=== PATIENT | female | born 1960 | race Caucasian/White ===

== ENCOUNTER 2016-05-09 07:05 | Emergency (ER) | payer OTHER ==
[2016-05-09 07:23] VITALS: O2SAT 100
--- NOTE | 2016-05-09 07:42 | ERPHSYRPT ---
- History of Present Illness Time Seen by Provider: 05/09/16 07:29 Source: patient Exam Limitations: no limitations Patient Subjective Stated Complaint: dizziness Triage Nursing Assessment: states she felt dizzy last night before bed. woke up this morning with dizziness and heart 'fluttering'. vomited x2 driving in. on arrival, slightly diaphoretic, heart felt like it was 'fluttering' and 'my whole body feels shaky' moist oral membranes. david pain or injury. Physician History: The patient is a 56-year-old female who complains of some dizziness and lightheadedness that started last night. This morning she had one loose stool. In the bathroom when she closed her eyes she states the room felt like it was spinning. She states her heart felt a little bit "funny". She denies abdominal pain. She denies headache. On the drive to work she pulled over and vomited twice. Her body feels "shaky. She has a past medical history of hypothyroidism, diabetes, and high cholesterol. Visit past surgical history of . She denies tobacco use. She has an occasional alcoholic beverage. Timing/Duration: yesterday Severity: moderate Modifying Factors: Improves With: nothing Associated Symptoms: vomiting Allergies/Adverse Reactions: No Known Drug Allergies Allergy (Verified 05/09/16 07:23) Home Medications: Levothyroxine Sodium 88 Mcg [Synthroid 88 Mcg] 100 mcg PO DAILY 09/25/13 [ History] Metformin HCl 1000 mg [Glucophage 1000 MG] 1,000 mg PO BID 09/25/13 [History] Atorvastatin Calcium [Lipitor 20MG Tablet] 20 mg PO HS 07/27/14 [History] Naltrexone HCl/Bupropion HCl [Contrave ER 8-90 mg Tablet] 2 each PO DAILY [History] Hx Tetanus, Diphtheria Vaccination/Date Given: Yes Hx Influenza Vaccination/Date Given: Yes Hx Pneumococcal Vaccination/Date Given: No Immunizations Up to Date: Yes - Review of Systems Constitutional: No Fever, No Chills Eyes: No Symptoms Ears, Nose, & Throat: No Symptoms Respiratory: No Cough, No Dyspnea Cardiac: Palpitations Abdominal/Gastrointestinal: Vomiting Genitourinary Symptoms: No Dysuria Musculoskeletal: No Back Pain, No Neck Pain Skin: No Rash Neurological: Dizziness Psychological: No Symptoms Endocrine: No Symptoms Hematologic/Lymphatic: No Symptoms Immunological/Allergic: No Symptoms All Other Systems: Reviewed and Negative - Past Medical History Pertinent Past Medical History: Yes Neurological History: No Pertinent History ENT History: No Pertinent History Cardiac History: Angina Respiratory History: No Pertinent History Endocrine Medical History: Diabetes Type II Musculoskeletal History: No Pertinent History GI Medical History: No Pertinent History History: Other Psycho-Social History: No Pertinent History Female Reproductive Disorders: No Pertinent History Other Medical History: hx of 3 rib fractures. pre diabetic. KIDNEY STONES - Past Surgical History Past Surgical History: Yes Neuro Surgical History: No Pertinent History Cardiac: No Pertinent History Respiratory: No Pertinent History Gastrointestinal: No Pertinent History Genitourinary: No Pertinent History Musculoskeletal: Orthopedic Surgery Female Surgical History: Section Other Surgical History: 2 KNEE SURGERYS. D&C - Social History Smoking Status: Never smoker Exposure to second hand smoke: No Drug Use: none Patient Lives Alone: No - Female History Hx Now: No - Nursing Vital Signs Nursing Vital Signs: Initial Vital Signs Temperature 97.6 F Temperature Source Oral Pulse Rate 73 Respiratory Rate 18 Blood Pressure 141/85 Pain Intensity 0 - Physical Exam General Appearance: mild distress Eye Exam: PERRL/EOMI, eyes nml inspection Ears, Nose, Throat Exam: normal ENT inspection, TMs normal, pharynx normal, moist mucous membranes Neck Exam: normal inspection, non-tender, supple, full range of motion Respiratory Exam: normal breath sounds, lungs clear, No respiratory distress Cardiovascular Exam: regular rate/rhythm, normal heart sounds, normal peripheral pulses Gastrointestinal/Abdomen Exam: soft, normal bowel sounds, No tenderness, No mass Pelvic Exam: not done Rectal Exam: not done Back Exam: normal inspection, normal range of motion, No CVA tenderness, No vertebral tenderness Extremity Exam: normal inspection, normal range of motion, pelvis stable Neurologic Exam: alert, oriented x 3, cooperative, 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, normal mood/affect, nml cerebellar function, nml station & gait, sensation nml, No motor deficits Skin Exam: normal color, warm, dry, No rash Lymphatic Exam: No adenopathy SpO2 Interpretation: normal SpO2: 100 Oxygen Delivery: Room Air - Course EKG Interpreted by Me: Sinus Rhythm, NORMAL AXIS, NORMAL INTERVALS, NORMAL QRS, NORMAL ST-T, Other (no change comp EKG 11/30/14) - Radiology Exams Chest X-ray Interpretation: Teleradiologist Report, Negative Ordered Tests: Active Orders 24 hr Category Date Time Status Results Technician STAT Care 05/09/16 07:25 Active EKG-ER Only STAT Care 05/09/16 07:25 Active IV Insertion STAT Care 05/09/16 07:25 Active Pulse Oximetry (ED) STAT Care 05/09/16 07:25 Active CHEST 2 VIEWS (PA AND LAT) Stat Exams 05/09/16 07:48 Completed CBC W DIFF Stat Lab 05/09/16 07:40 Completed CMP Stat Lab 05/09/16 07:40 Completed HCG QUALITATIVE,SERUM Stat Lab 05/09/16 07:40 Completed TROPONIN Stat Lab 05/09/16 07:40 Completed UA Stat Lab 05/09/16 09:12 Completed Medication Summary Discontinued Medications Generic Name Dose Route Start Last Admin Trade Name Freq PRN Reason Stop Dose Admin Sodium Chloride 1,000 mls @ 999 mls/hr 05/09/16 07:47 05/09/16 08:00 Sodium Chloride 0.9% 1000 Ml IV 05/09/16 08:47 999 mls/hr .Q1H1M STA Administration Sodium Chloride Confirm 05/09/16 07:59 Sodium Chloride 0.9% 1000 Ml Administered 05/09/16 08:00 Dose 1,000 mls @ ud .ROUTE .STK-MED ONE Ondansetron HCl 4 mg 05/09/16 07:47 05/09/16 08:01 Zofran 4 Mg/2 Ml Vial IV 05/09/16 07:48 4 mg STAT ONE Administration Ondansetron HCl Confirm 05/09/16 07:59 Zofran 4 Mg/2 Ml Vial Administered 05/09/16 08:00 Dose 4 mg .ROUTE .STK-MED ONE Lab/Rad Data: Laboratory Result Diagrams 05/09/16 07:40 05/09/16 07:40 Laboratory Results 05/09/16 05/09/16 05/09/16 Range/Units 09:12 07:40 07:40 WBC (4.0-10.5) K/mm3 RBC (4.1-5.4) M/mm3 Hgb (12.0-16.0) gm/dl Hct (35-47) % MCV (78-100) fl MCH (26-32) pg MCHC (32-36) g/dl RDW (11.5-14.0) % Plt Count (150-450) K/mm3 MPV (6-9.5) fl Gran % (36.0-66.0) % Lymphocytes % (24.0-44.0) % Monocytes % (0.0-12.0) % Eosinophils % (0.00-5.0) % Basophils % (0.0-0.4) % Basophils # (0-0.4) Sodium 142 (136-145) mEq/L Potassium 3.8 (3.5-5.1) mEq/L Chloride 106 (98-107) mEq/L Carbon Dioxide 27.9 (21-32) mEq/L Anion Gap 11.7 (5-15) MEQ/L BUN 17 (9-20) mg/dL Creatinine 0.74 (0.55-1.30) mg/dl Estimated GFR > 60 ML/MIN Glucose 109 (70-110) MG/DL Calcium 9.1 (8.5-10.1) mg/dL Total Bilirubin 0.3 (0.2-1.0) mg/dL AST 12 L (15-37) U/L ALT 14 (12-78) U/L Alkaline Phosphatase 94 (46-116) U/L Troponin I < 0.017 (0.000-0.056) ng/ml Serum Total Protein 6.7 (6.4-8.2) gm/dL Albumin 3.5 (3.4-5.0) g/dL Serum , Qual NEGATIVE (Negative) Ur Collection Type CLEAN CATCH Urine Color YELLOW (YELLOW) Urine Appearance CLEAR (CLEAR) Urine pH 7.0 (5-6) Ur Specific [place] 1.020 (1.005-1.025) Urine Protein NEGATIVE (Negative) Urine Glucose (UA) NEGATIVE (NEGATIVE) mg/dL Urine Ketones NEGATIVE (NEGATIVE) Urine Nitrite NEGATIVE (NEGATIVE) Urine Bilirubin NEGATIVE (NEGATIVE) Urine Urobilinogen 0.2 (0-1) mg/dL Urine WBC (Auto) NEGATIVE (NEGATIVE) Urine RBC (Auto) NEGATIVE (0-5) [place]/ul Specimen Received [id number] 0911 05/09/16 Range/Units 07:40 WBC 4.1 (4.0-10.5) K/mm3 RBC 4.18 (4.1-5.4) M/mm3 Hgb 10.8 L (12.0-16.0) gm/dl Hct 34.7 L (35-47) % MCV 83.0 (78-100) fl MCH 25.8 L (26-32) pg MCHC 31.1 L (32-36) g/dl RDW 15.7 H (11.5-14.0) % Plt Count 259 (150-450) K/mm3 MPV 9.6 H (6-9.5) fl Gran % 49.8 (36.0-66.0) % Lymphocytes % 33.9 (24.0-44.0) % Monocytes % 11.9 (0.0-12.0) % Eosinophils % 3.9 (0.00-5.0) % Basophils % 0.5 (0.0-0.4) % Basophils # 0.02 (0-0.4) Sodium (136-145) mEq/L Potassium (3.5-5.1) mEq/L Chloride (98-107) mEq/L Carbon Dioxide (21-32) mEq/L Anion Gap (5-15) MEQ/L BUN (9-20) mg/dL Creatinine (0.55-1.30) mg/dl Estimated GFR ML/MIN Glucose (70-110) MG/DL Calcium (8.5-10.1) mg/dL Total Bilirubin (0.2-1.0) mg/dL AST (15-37) U/L ALT (12-78) U/L Alkaline Phosphatase (46-116) U/L Troponin I (0.000-0.056) ng/ml Serum Total Protein (6.4-8.2) gm/dL Albumin (3.4-5.0) g/dL Serum , Qual (Negative) Ur Collection Type Urine Color (YELLOW) Urine Appearance (CLEAR) Urine pH (5-6) Ur Specific [place] (1.005-1.025) Urine Protein (Negative) Urine Glucose (UA) (NEGATIVE) mg/dL Urine Ketones (NEGATIVE) Urine Nitrite (NEGATIVE) Urine Bilirubin (NEGATIVE) Urine Urobilinogen (0-1) mg/dL Urine WBC (Auto) (NEGATIVE) Urine RBC (Auto) (0-5) Tico/ul Specimen Received - Progress Progress: improved Progress Note: 05/09/16 09:42 After zofran 4 mg and NS 1000 ml IV, pt is feeling much better. Counseled pt/family regarding: lab results, diagnosis, rad results - Departure Time of Disposition: 09:43 Departure Disposition: Home Clinical Impression: Dizziness, Anemia Condition: Stable Critical Care Time: No Additional Instructions: Take the day off from work and rest. Take zofran as needed. Follow up with Dr Dexter to evaluate your anemia. Prescriptions: Ondansetron [Zofran Odt] 4 mg PO Q6HPRN PRN #10 tab.rapdis PRN Reason: Nausea/Vomiting
[2016-05-09] MEDS ORDERED: Sodium Chloride 0.9% 1000 ML 1,000 ML IV STA (07:47)
[2016-05-09] MEDS ORDERED: Zofran 4 MG/2 ML VIAL IV ONE (07:47)
[2016-05-09 07:53] LABS: BASOPHIL % 0.5 % (0.0-0.4); Eosinophil % 3.9 % (0.00-5.0); Granulocytes % 49.8 % (36.0-66.0); Lymphocytes % 33.9 % (24.0-44.0); Mean Corpuscular Hemoglobin 25.8 pg (26-32); Mean Platelet Volume 9.6 fl (6-9.5); Monocytes % 11.9 % (0.0-12.0); Platelet Count 259 K/mm3 (150-450); Red Blood Count 4.18 M/mm3 (4.1-5.4); Red Cell Distribution Width 15.7 % (11.5-14.0); White Blood Count 4.1 K/mm3 (4.0-10.5)
[2016-05-09] MEDS ORDERED: Zofran 4 MG/2 ML VIAL ONE (07:59)
[2016-05-09] MEDS ORDERED: Sodium Chloride 0.9% 1000 ML 1,000 ML ONE (07:59)
[2016-05-09 08:04] LABS: ALBUMIN 3.5 g/dL (3.4-5.0); ALKALINE PHOSPHATASE 94 U/L (46-116); ANION GAP 11.7 MEQ/L (5-15); BILIRUBIN,TOTAL 0.3 mg/dL (0.2-1.0); BLOOD UREA NITROGEN 17 mg/dL (9-20); CHLORIDE 106 mEq/L (98-107); Carbon Dioxide 27.9 mEq/L (21-32); Glucose 109 MG/DL (70-110); Potassium 3.8 mEq/L (3.5-5.1); SGOT/AST 12 U/L (15-37); SGPT/ALT 14 U/L (12-78); SODIUM 142 mEq/L (136-145); Total Protein 6.7 gm/dL (6.4-8.2)
[2016-05-09 08:06] LABS: TROPONIN < 0.017 ng/ml (0.000-0.056)
--- NOTE | 2016-05-09 08:56 | XRAY ---
Indication: Dizziness, vomiting, and elevated blood pressure. Comparison: July 27, 2014 PA/lateral chest demonstrates normal heart, lungs, and bony thorax with again a few calcified granulomas.
[2016-05-09 09:12] LABS: Collection Type CLEAN CATCH
[2016-05-09 09:13] LABS: COMPLETE URINE MICROSCOPIC? NO
[2016-05-09 10:14] VITALS: BP 130/72; PULSE 74
== END 2016-05-09 10:14 | disposition home or self-care (01) ==
LOC: ED 07:05
DX: R42 Dizziness and giddiness (principal); D64.9 Anemia, unspecified; R11.10 Vomiting, unspecified; E03.9 Hypothyroidism, unspecified; E11.9 Type 2 diabetes mellitus without complications; E78.00 Pure hypercholesterolemia, unspecified; Z79.899 Other long term (current) drug therapy
CPT/HCPCS: 36000; 36415; 71020; 80053; 81002; 84484; 84703; 85025; 93005; 93041; 96360; 96374; 99283; J2405

== ENCOUNTER 2016-07-04 12:34 | Day surgery (SDC) | payer OTHER ==
[~2016-07-04 12:34] MED LIST: DIPRIVAN 200 MG/20 ML IV ONE; Lactated Ringers 1,000 ML IV ONE; Lactated Ringers 1,000 ML IV SCH; SUBLIMAZE 100 MCG/2 ML IV ONE; Versed 2 MG/2 ML Injection IV ONE
[2016-07-04 17:12] VITALS: BP 126/64; PULSE 68; O2SAT 97
--- NOTE | 2016-07-05 08:25 | OP ---
PROCEDURE DATE/TIME: 07/04/2016 1508 PREOPERATIVE DIAGNOSES: 1) Anemia. 2) Family history of colon cancer. POSTOPERATIVE DIAGNOSES: 1) Multiple gastric polyps. 2) Normal appearing colon. PROCEDURES: 1) EGD with hot snare gastric polypectomy and gastric polyp biopsy. 2) Colonoscopy to cecum. PROCEDURE PERFORMED BY: Aura Delgado M.D. ANESTHESIA: MAC. ESTIMATED BLOOD LOSS: Minimal. COMPLICATIONS: None. SPECIMENS: 1) Small gastric polyp. 2) Large gastric polyp. HISTORY: This is a 56 year-old female who presents for EGD and colonoscopy due to anemia. She does also have a strong family history of colon cancer. She has had colonoscopies in the past without issue. All risks, benefits, alternatives to the procedure were discussed with the patient in detail and she agreed to proceed. DESCRIPTION OF PROCEDURE: She was seen preoperatively and then brought back to the endoscopy suite. Laid in the left lateral decubitus position. A complete time out was performed. The scope was then entered into the mouth, oropharynx and down into the esophagus. The esophagus was normal. The scope was advanced into the stomach. The patient had multiple gastric polyps. Outside of this the stomach appeared normal. There were no sign of any inflammation. The scope was then advanced further into the duodenum this also was normal. The scope was withdrawn back into the stomach. It was retroflexed to look at the hiatus. The patient had a very small hiatal hernia this could be physiologic. It was very minor. She did also again have the multiple gastric polyps. There was one polyp in particular in the gastric body which was larger than the rest with a slightly more irregular contour this did appear to be very benign. However, I did remove this in entirety with a hot snare and we retrieved the polyp and sent this to pathology to be checked. I also took some biopsies of the other moderate sized polyps but these all appeared to be benign polyp. The small polyps were sent to pathology as well and we will await these biopsies. All sites were then hemostatic. We were able to desufflate the stomach and then carefully withdraw the scope. The patient was then prepped for colonoscopy. First, we did a rectal exam. The patient has had prior fistula surgery. She does not have any obvious mass on rectal exam. The scope was then entered and carefully advanced towards the cecum. There is a small amount of liquid stool that had to be irrigated and suctioned throughout the colon. There was a moderate amount in the ascending colon that had to be irrigated and suctioned. The view was slightly limited due to this but we were able to see much of the mucosa and it appeared very healthy. A very small or flat lesion could be missed because of the prep. We were able to get the scope all the way to the cecum. The ileocecal valve was identified. The appendiceal orifice was identified. All of this appeared normal. The scope was then carefully withdrawn continuing to irrigate and suction and do a circumferential inspection. I did not see any obvious issues at all. The colon appeared very healthy. There were no signs of any cause of bleeding. There was no old blood or new blood. There were no large masses. The scope was then able to be fully withdrawn after close inspection. The patient tolerated the procedure well. There were no immediate complications. She will follow up with me in the office to discuss the results. Due to her gastric polyp we will plan to do another scope in approximately one year pending her symptoms and we will plan to do her colonoscopy in approximately five years. I have discussed this also with her family.
== END 2016-07-04 17:15 | disposition home or self-care (01) ==
LOC: SDC 12:34
PROVIDERS: ATTEND Surgery
PROC: 0DB68ZX Excision of Stomach, Via Natural or Artificial Opening Endoscopic, Diagnostic (ICD-10-PCS; principal; 2016-07-04)
PROC: 0DJD8ZZ Inspection of Lower Intestinal Tract, Via Natural or Artificial Opening Endoscopic (ICD-10-PCS; 2016-07-04)
DX: K31.7 Polyp of stomach and duodenum (principal); Z80.0 Family history of malignant neoplasm of digestive organs; E11.9 Type 2 diabetes mellitus without complications; E03.9 Hypothyroidism, unspecified; E78.00 Pure hypercholesterolemia, unspecified
CPT/HCPCS: 00740; 00810; 36415; 82962; 88305; J2250; J2704; J3010

== ENCOUNTER 2019-06-03 12:16 | Day surgery (SDC) | payer OTHER ==
[2019-06-03] MEDS ORDERED: Depo-Medrol 40 MG/ML IM ONE (12:17)
[2019-06-03] MEDS ORDERED: Xylocaine 1% Vial 30 ML PF IJ ONE (12:17)
[2019-06-03] MEDS ORDERED: Xylocaine-Mpf 2% 5 Ml Vial IJ ONE (12:17)
--- NOTE | 2019-06-03 16:37 | XRAY ---
24 seconds of fluoroscopy was used in surgery for a bilateral L4-L5 and L5-S1 MBB.
--- NOTE | 2019-06-03 16:37 | XRAY ---
Indication: Bilateral L4-S1 MBB. Intraoperative fluoroscopy was provided for 24 seconds. Single digital spot image submitted for interpretation demonstrates posterior needle tips projecting over the expected course of the left and right L4-S1 nerve roots. Correlate with intraoperative findings/report.
== END 2019-06-03 14:52 | disposition home or self-care (01) ==
LOC: SDC-PAIN 12:16
PROVIDERS: ATTEND Psychiatry & Neurology Pain Medicine
DX: M47.816 Spondylosis without myelopathy or radiculopathy, lumbar region (principal); M53.3 Sacrococcygeal disorders, not elsewhere classified; G57.01 Lesion of sciatic nerve, right lower limb
CPT/HCPCS: 64493; 64494; 72020; 77002; 82962; J1030; J2001

== ENCOUNTER 2020-02-10 12:42 | Day surgery (SDC) | payer OTHER ==
[2020-02-10] MEDS ORDERED: Depo-Medrol 40 MG/ML IM ONE (12:43)
[2020-02-10] MEDS ORDERED: Decadron 4 MG INJ IV ONE (12:43)
[2020-02-10] MEDS ORDERED: Xylocaine 1% Vial 30 ML PF IJ ONE (12:43)
[2020-02-10] MEDS ORDERED: BUPIVACAINE 0.5% VIAL IJ ONE (12:43)
--- NOTE | 2020-02-10 15:02 | XRAY ---
Indication: Right SI joint and piriformis muscle injection. Intraoperative fluoroscopy was provided for 46 seconds. 3 digital spot images submitted for interpretation demonstrates posterior needle tip projecting over the the inferior right SI joint. A second needle tip projects over the expected right piriformis muscle with small amount of contrast injected for needle tip placement. Correlate with intraoperative findings/report.
--- NOTE | 2020-02-10 15:14 | XRAY ---
46 seconds of fluoroscopy was used in surgery for a right SI joint and piriformis muscle injection.
== END 2020-02-10 14:32 | disposition home or self-care (01) ==
LOC: SDC-PAIN 12:42
PROVIDERS: ATTEND Psychiatry & Neurology Pain Medicine
DX: M46.1 Sacroiliitis, not elsewhere classified (principal); M60.9 Myositis, unspecified; I10 Essential (primary) hypertension; E03.9 Hypothyroidism, unspecified; E78.5 Hyperlipidemia, unspecified; R73.03 Prediabetes; Z79.899 Other long term (current) drug therapy
CPT/HCPCS: 20552; 27096; 72202; 77002; 82962; J1030; J1100; J2001; Q9966; G0260

== ENCOUNTER 2020-03-22 06:40 | Emergency (ER) | payer OTHER ==
[2020-03-22] MEDS ORDERED: TORAdol 30 mg Injection IV ONE (07:31)
[2020-03-22] MEDS ORDERED: TORAdol 30 mg Injection ONE (07:59)
--- NOTE | 2020-03-22 08:22 | ERPHSYRPT ---
- History of Present Illness Source: patient Exam Limitations: no limitations Patient Subjective Stated Complaint: L thigh pain Triage Nursing Assessment: . Physician History: 60 yo wf w L thigh/L groin pain x 1 wk. Pt denies injury and states pain 9 on scale. Pain worse w movement and weight bearing.. She has never had this pain before and denies N/N/D/dysuria/hematuria/fever/cough. Method of Injury: unknown Occurred: other (1wk) Severity of Pain-Max: severe Severity of Pain-Current: severe Modifying Factors: Improves With: movement Associated Symptoms: other (Pain increased w weight bearing) Allergies/Adverse Reactions: No Known Drug Allergies Allergy (Verified 03/22/20 07:28) Home Medications: Atorvastatin Calcium [Lipitor 20MG Tablet] 20 mg PO HS 07/27/14 [History] Folic Acid/Multivit,Iron,[place] [One Daily For Women Tablet] 2 tab PO DAILY 06/28/16 [History] Levothyroxine Sodium 100 Mcg [Synthroid 100 Mcg] 1 tab PO DAILY 06/28/16 [History] Multivitamin with Minerals [Hair, Skin & Nails] 2 tab PO DAILY 06/28/16 [Hi story] Ascorbic Acid [Vitamin C] 1 tab PO DAILY 03/22/20 [History] Aspirin 81 gm Chew [Baby Aspirin 81 mg Chew] 81 mg PO DAILY 03/22/20 [History] Hydrochlorothiazide 12.5 mg PO DAILY 03/22/20 [History] Loratadine 10 mg [Claritin 10 mg] 10 mg PO DAILY PRN PRN 03/22/20 [History] Losartan Potassium 25 mg PO DAILY 03/22/20 [History] Meclizine HCl 25 mg [Antivert 25 mg] 25 mg PO DAILY PRN PRN 03/22/20 [History] Vitamin B Complex 1 tab PO DAILY 03/22/20 [History] Hx Tetanus, Diphtheria Vaccination/Date Given: Yes Hx Influenza Vaccination/Date Given: Yes Hx Pneumococcal Vaccination/Date Given: No Travel Risk - International Travel Have you traveled outside of the country in past 3 weeks: No - Coronavirus Screening Are you exhibiting any of the following symptoms?: No Close contact with a COVID-19 positive Pt in past 14-21 Days: Yes - Review of Systems Constitutional: No Symptoms Eyes: No Symptoms Ears, Nose, & Throat: No Symptoms Respiratory: No Symptoms Cardiac: No Symptoms Abdominal/Gastrointestinal: Other (L inguinal pain) Genitourinary Symptoms: No Dysuria, No Frequency, No Hematuria, No Hesitancy, No Incontinence, No Urgency, No Urinary Retention, No Flank Pain, No Menorrhagia, No , No Vaginal Bleeding, No Vaginal Discharge, No Vaginal Itching Musculoskeletal: Back Pain Skin: No Symptoms Neurological: No Symptoms Psychological: No Symptoms Endocrine: No Symptoms Hematologic/Lymphatic: No Symptoms Immunological/Allergic: No Symptoms - Past Medical History Pertinent Past Medical History: Yes Neurological History: No Pertinent History ENT History: No Pertinent History Cardiac History: High Cholesterol, Hypertension Respiratory History: No Pertinent History Endocrine Medical History: Hypothyroidism Musculoskeletal History: Osteoarthritis GI Medical History: No Pertinent History History: Other Psycho-Social History: No Pertinent History Female Reproductive Disorders: No Pertinent History Other Medical History: SX HX - KNEE SURGERY X 2 WITH MENISCAL TEARS MOST RECENT 2003 (ARTHROSCOPICALLY). BACK PROBLEMS PREVIOUSLY TREATED WITH ANTIFLAMMATORIES, HEAT, AND TENS - Past Surgical History Past Surgical History: Yes Neuro Surgical History: No Pertinent History Cardiac: No Pertinent History Respiratory: No Pertinent History Gastrointestinal: No Pertinent History Genitourinary: No Pertinent History Musculoskeletal: Orthopedic Surgery Female Surgical History: Section Other Surgical History: 2 KNEE SURGERYS. D&C x 2, 1 uterine adhesion surgery, x 1, L knee arthroscopy times 2, rectal fistula times 2, colonoscopy times 2, - Social History Smoking Status: Never smoker Exposure to second hand smoke: No Drug Use: none Patient Lives Alone: No - Female History Hx Now: No - Nursing Vital Signs Nursing Vital Signs: Initial Vital Signs Temperature 97.8 F 03/22/20 07:07 Pulse Rate 69 03/22/20 07:07 Respiratory Rate 17 03/22/20 07:07 Blood Pressure 125/74 03/22/20 07:07 O2 Sat by Pulse Oximetry 97 03/22/20 07:07 Pain Scale Pain Intensity 3 - Physical Exam General Appearance: no apparent distress Eyes, Ears, Nose, Throat Exam: normal ENT inspection, TMs normal, pharynx normal, moist mucous membranes Neck Exam: normal inspection, non-tender, supple, full range of motion, No Brudzinski, No Kernig's, No meningismus, No carotid bruit Cardiovascular/Respiratory Exam: normal breath sounds, heart sounds normal Gastrointestinal/Abdominal Exam: non-tender Back Exam: normal inspection, normal range of motion, No CVA tenderness Hips Exam: bilateral: non-tender, normal inspection, normal range of motion, no evidence of injury Legs Exam: bilateral leg: non-tender, normal inspection, normal range of motion, no evidence of injury Knees Exam: bilateral knee: non-tender, normal inspection, normal range of motion, no evidence of injury Ankle Exam: bilateral ankle: non-tender, normal inspection, normal range of motion, no evidence of injury DTR - Lower Extremities Exam: knee (R): 2+, knee (L): 2+ Neuro/Tendon Exam: normal sensation, normal motor functions, normal tendon functions, responds to pain, no evidence tendon injury, No motor deficit, No sensory deficit Mental Status Exam: alert, oriented x 3, cooperative, No agitated, No uncooperative Skin Exam: normal color, warm, dry, No rash SpO2 Interpretation: normal SpO2: 98 O2 Delivery: Room Air - CT Exams Abdomen/Pelvis CT Interpretation: Discussed w/radiologist (Nothing acute) - Radiology Ultrasound Exam Venous Lower Extremity Ultrasound: discussed w/radiologist (No DVT) Ordered Tests: Active Orders 24 hr Category Date Time Status ABDOMEN AND PELVIS W/0 CONTRAS [CT] Stat Exams 03/22/20 08:58 Completed Ultrasound Unilateral Extremities [VENOUS UNILAT/ Exams 03/22/20 07:51 Completed LIMITED EXTREMIT] [US] Stat UA W/RFX UR CULTURE Stat Lab 03/22/20 07:57 Completed Urine Triage Profile Stat Lab 03/22/20 08:40 Completed Medication Summary Discontinued Medications Generic Name Dose Route Start Last Admin Trade Name Cyn PRN Reason Stop Dose Admin Ketorolac Tromethamine 30 mg 03/22/20 07:31 03/22/20 08:02 Toradol 30 Mg Injection IV 03/22/20 07:32 30 mg STAT ONE Administration Ketorolac Tromethamine Confirm 03/22/20 07:59 Toradol 30 Mg Injection Administered 03/22/20 08:00 Dose 30 mg .ROUTE .STK-MED ONE Lab/Rad Data: Laboratory Results 03/22/20 03/22/20 Range/Units 08:40 07:57 Urine Color STRAW (YELLOW) Urine Appearance CLEAR (CLEAR) Urine pH 7.0 (5-6) Ur Specific [place] 1.011 (1.005-1.025) Urine Protein NEGATIVE (Negative) Urine Ketones NEGATIVE (NEGATIVE) Urine Blood NEGATIVE (0-5) [place]/ul Urine Nitrite NEGATIVE (NEGATIVE) Urine Bilirubin NEGATIVE (NEGATIVE) Urine Urobilinogen NEGATIVE (0-1) mg/dL Ur Leukocyte Esterase NEGATIVE (NEGATIVE) Urine WBC (Auto) NONE (0-5) /HPF Urine RBC (Auto) NONE (0-2) /HPF U Epithel Cells (Auto) NONE (FEW) /HPF Urine Bacteria (Auto) NONE (NEGATIVE) /HPF Urine Mucus (Auto) SLIGHT (NEGATIVE) /HPF Urine Culture Reflexed NO (NO) Urine Glucose NEGATIVE (NEGATIVE) mg/dL Urine Opiates Level POSITIVE (NEGATIVE) Ur Methadone NEGATIVE (NEGATIVE) Urine Barbiturates NEGATIVE (NEGATIVE) Ur Phencyclidine (PCP) NEGATIVE (NEGATIVE) Urine Amphetamine NEGATIVE (NEGATIVE) U Benzodiazepine Level NEGATIVE (NEGATIVE) Urine Cocaine NEGATIVE (NEGATIVE) Urine Marijuana (THC) NEGATIVE (NEGATIVE) - Progress Progress: improved Progress Note: 03/22/20 09:22 Pain improved w 30mg IV toradol 03/22/20 10:03 Pt refused IV Fentanyl/IM Norflex before DC, because she wants to just take her [place] and return to work. Counseled pt/family regarding: lab results, need for follow-up, rad results - Departure Departure Disposition: Home Clinical Impression: Strain of left inguinal muscle Condition: Stable Critical Care Time: No Referrals: CHICHO BLANCO [Primary Care Provider] - Instructions: Muscle Strain (DC) Additional Instructions: Rest/Heat/Massage Continue with [place] for pain Follow up with your family MD or pain physician
--- NOTE | 2020-03-22 08:41 | XRAY ---
Indication: Left leg pain and swelling. Two-dimensional sonogram and color Doppler imaging of the major venous vessels of the left leg was performed. Comparison: July 28, 2012. No thrombus seen in the examined deep venous vessels of the left leg including greater saphenous vein. Veins demonstrate normal compressibility. Venous waveforms are normal with and without augmentation. Impression: Left leg remains negative for DVT.
[2020-03-22 08:51] LABS: Appearance CLEAR (CLEAR); Bilirubin NEGATIVE (NEGATIVE); Blood NEGATIVE Ery/ul (0-5); Glucose NEGATIVE (NEGATIVE); Ketones NEGATIVE (NEGATIVE); Leukocyte Esterase NEGATIVE (NEGATIVE); Mucus SLIGHT /HPF (NEGATIVE); Nitrite NEGATIVE (NEGATIVE); Protein,Urine Dip NEGATIVE (Negative); Specific Gravity 1.011 (1.005-1.025); Urobilinogen NEGATIVE mg/dL (0-1)
[2020-03-22 09:00] LABS: Amphetamine,Urine NEGATIVE (NEGATIVE); Barbiturate,Urine NEGATIVE (NEGATIVE); Benzodiazepine,Urine NEGATIVE (NEGATIVE); Cocaine,Urine NEGATIVE (NEGATIVE); Methadone,Urine NEGATIVE (NEGATIVE); Opiate,Urine POSITIVE (NEGATIVE); PCP,Urine NEGATIVE (NEGATIVE); THC,Urine NEGATIVE (NEGATIVE)
--- NOTE | 2020-03-22 09:42 | XRAY ---
Indication: Left inguinal pain 1 week. Multiple contiguous axial images obtained through the abdomen and pelvis without contrast as ordered. Comparison: May 25, 2019. Lung bases demonstrates minimal subsegmental atelectasis/scarring without infiltrate or effusion. Heart is not enlarged. Noncontrasted stomach and bowel loops remain nonobstructed. Normal appendix. No free fluid/air. Stable calcified splenic granulomas. Remaining liver, gallbladder, pancreas, spleen, adrenal glands, kidneys, ureters, bladder, uterus, and aorta appear unremarkable for noncontrast exam. Osseous structures intact with stable L4-L5 degenerative disc disease. No ventral or inguinal hernias. Impression: 1. Stable splenic calcified granulomas and L4-L5 degenerative disc disease. 2. Continued negative CT abdomen/pelvis without contrast exam.
[2020-03-22 10:19] VITALS: BP 149/85; PULSE 77
[2020-03-22 11:40] VITALS: O2SAT 98
== END 2020-03-22 10:17 | disposition home or self-care (01) ==
LOC: ED 06:40
DX: S76.811A Strain of other specified muscles, fascia and tendons at thigh level, right thigh, initial encounter (principal); M79.652 Pain in left thigh; S76.912A Strain of unspecified muscles, fascia and tendons at thigh level, left thigh, initial encounter
CPT/HCPCS: 36000; 74176; 80307; 81001; 93971; 96374; 99284; J1885

== ENCOUNTER 2020-04-04 08:57 | Day surgery (SDC) | payer OTHER ==
[2020-04-04] MEDS ORDERED: Lactated Ringers 1,000 ML IV ONE ×2 (09:11→11:48)
[2020-04-04] MEDS ORDERED: Lactated Ringers 1,000 ML IV SCH (09:30)
[2020-04-04] MEDS ORDERED: DIPRIVAN 200 MG/20 ML IV ONE ×2 (11:37→11:55)
[2020-04-04] MEDS ORDERED: Xylocaine-Mpf 2% 5 Ml Vial ONE (11:37)
[2020-04-04 12:34] VITALS: O2SAT 96
[2020-04-04 13:16] VITALS: BP 120/74; PULSE 82
--- NOTE | 2020-04-04 15:23 | HP ---
HISTORY: This is a patient who presents for EGD. The patient has a history of gastric polyps. PAST MEDICAL/SURGICAL HISTORY: Includes section, knee surgery, thyroid disease, hypertension and hyperlipidemia. MEDICATIONS: Medications reviewed and in the chart. ALLERGIES: NKDA. FAMILY HISTORY: Appendiceal cancer. PHYSICAL EXAMINATION: GENERAL: No acute distress. CVS: Regular rate and rhythm. PULMONARY: Nonlabored. ABDOMEN: Soft, nontender, nondistended. EXTREMITIES: Normal. DIAGNOSIS: Gastric polyps. PLAN: EGD.
--- NOTE | 2020-04-04 15:39 | OP ---
PROCEDURE DATE/TIME: 04/04/2020 1145 PREOPERATIVE DIAGNOSES: Gastric polyps. POSTOPERATIVE DIAGNOSES: 1) Hemorrhagic gastritis. 2) Small hiatal hernia approximately 1 to 2 cm. 3) Gastric polyps. PROCEDURE: EGD with hot snare polypectomy and cold forceps biopsy. PROCEDURE PERFORMED BY: Aura Delgado M.D. ESTIMATED BLOOD LOSS: Minimal. ANESTHESIA: MAC. SPECIMENS: 1) Gastric polyps. 2) Antral biopsies to rule out Helicobacter pylori. COMPLICATIONS: None. HISTORY: This is a patient who presents for EGD. Risks, benefits, alternatives, H&P, consent reviewed with her and confirmed in the preoperative area. DESCRIPTION OF PROCEDURE: She was then brought back to the endoscopy suite, laid in the left lateral decubitus position. A complete time out performed. The scope gently introduced into the mouth, oropharynx, down to the esophagus, stomach and duodenum. The stomach immediately upon entering had multiple specks of old blood. There was actually a moderate amount of old blood throughout the stomach. There was no obvious source. As we entered the pylorus and duodenum, the pylorus and duodenum are both normal with no blood here. The scope is then withdrawn back to the stomach. We did a retroflex view. The hiatus was visualized. She does have a small hiatal hernia. She does have multiple very small, benign appearing gastric polyps. Two of these were slightly larger in size and these were taken with hot snare in entirety and sent to pathology after being retrieved. Site hemostatic. On close inspection and after irrigating, I do not see a source of the blood. He has what looks like an old possible prior ulcer site but there is no active ulceration. I took biopsies here this is in her antrum and sent these to rule out Helicobacter pylori disease as well. These sites are hemostatic and then we carefully withdrew her scope. She had some mild reflux changes at her distal esophagus. No active Sheehan's disease. The remainder of the esophagus is normal except for the small hiatal hernia. Scope completely withdrawn. The patient tolerated the procedure very well and no immediate complications. I am going to write her a prescription for proton pump inhibitor therapy to treat her gastritis and she will be following up with me in three months. We will do a phone call appointment for her immediate pathology results.
== END 2020-04-04 13:05 | disposition home or self-care (01) ==
LOC: SDC 08:57
PROVIDERS: ATTEND Surgery
DX: Z09 Encounter for follow-up examination after completed treatment for conditions other than malignant neoplasm (principal); K29.71 Gastritis, unspecified, with bleeding; K31.7 Polyp of stomach and duodenum; K44.9 Diaphragmatic hernia without obstruction or gangrene; I10 Essential (primary) hypertension; E78.5 Hyperlipidemia, unspecified; Z80.8 Family history of malignant neoplasm of other organs or systems
CPT/HCPCS: 88305; J2704

== ENCOUNTER 2021-03-14 07:34 | Emergency (ER) | payer OTHER ==
--- NOTE | 2021-03-14 07:37 | ERPHSYRPT ---
- History of Present Illness Time Seen by Provider: 03/14/21 07:37 Source: patient Exam Limitations: no limitations Physician History: This is a 61-year-old white female who presented to the emergency department with initially complained of left lower leg pain. She has had complaints of left leg pain in the past on multiple occasions. Patient does seen a pain specialist (Dr. Bowers). Patient has a history of elevated cholesterol, hypothyroidism, hypertension and gastroesophageal reflux disease. When asked about her symptoms, she not only stated there was pain in her left calf since Saturday prior to this evaluation but also yesterday she noticed an ache and pressure in her central, substernal chest that does not radiate. She also states that her lower back is hurting as well. She did not suffer any acute fall or trauma. She specifically states she is under a lot of stress at this time. Method of Injury: other (No injury) Occurred: days ago (3 days ago was the left calf pain, yesterday was the lower back pain and chest pain) Quality: intermittent, aching Lower Extremities Pain: leg: left (Lower leg, posterior calf) Modifying Factors: Improves With: nothing Associated Symptoms: none Allergies/Adverse Reactions: No Known Drug Allergies Allergy (Verified 03/14/21 08:04) Home Medications: Atorvastatin Calcium [Lipitor 20MG Tablet] 80 mg PO HS 07/27/14 [History] Levothyroxine Sodium 100 Mcg [Synthroid 100 Mcg] 75 mcg PO UD 06/28/16 [History] Multivitamin with Minerals [Hair, Skin & Nails] 2 tab PO DAILY 06/28/16 [History] Ascorbic Acid [Vitamin C] 1 tab PO DAILY 03/22/20 [History] Hydrochlorothiazide 12.5 mg PO DAILY 03/22/20 [History] Loratadine 10 mg [Claritin 10 mg] 10 mg PO DAILY PRN PRN 03/22/20 [History] Losartan Potassium 25 mg PO DAILY 03/22/20 [History] Meclizine HCl 25 mg [Antivert 25 mg] 25 mg PO DAILY PRN PRN 03/22/20 [History] Vitamin B Complex 1 tab PO DAILY 03/22/20 [History] Melatonin 10 mg PO DAILY PRN PRN 03/25/20 [History] Aspirin EC 81 mg [Ecotrin 81 mg] 81 mg PO DAILY 04/04/20 [History] Ezetimibe 10 mg [Zetia 10 MG] 10 mg PO DAILY 03/14/21 [History] Metformin HCl Xr 500 mg [Glucophage XR 500 MG] 500 mg PO BID 03/14/21 [History] Hx Tetanus, Diphtheria Vaccination/Date Given: Yes Hx Influenza Vaccination/Date Given: Yes Hx Pneumococcal Vaccination/Date Given: No Travel Risk - International Travel Have you traveled outside of the country in past 3 weeks: No - Coronavirus Screening Are you exhibiting any of the following symptoms?: No Close contact with a COVID-19 positive Pt in past 14-21 Days: No - Review of Systems Constitutional: No Symptoms Eyes: No Symptoms Ears, Nose, & Throat: No Symptoms Respiratory: No Symptoms Cardiac: Chest Pain (Described as a nonradiating, central, substernal pressure) Abdominal/Gastrointestinal: No Symptoms Genitourinary Symptoms: No Symptoms Musculoskeletal: Other (Left posterior calf pain/ache) Skin: No Symptoms Neurological: No Symptoms Psychological: No Symptoms Endocrine: No Symptoms Hematologic/Lymphatic: No Symptoms Immunological/Allergic: No Symptoms All Other Systems: Reviewed and Negative - Past Medical History Pertinent Past Medical History: Yes Neurological History: No Pertinent History ENT History: No Pertinent History Cardiac History: High Cholesterol, Hypertension Respiratory History: No Pertinent History Endocrine Medical History: Hypothyroidism Musculoskeletal History: Osteoarthritis GI Medical History: No Pertinent History History: Other Psycho-Social History: No Pertinent History Female Reproductive Disorders: No Pertinent History Other Medical History: SX HX - KNEE SURGERY X 2 WITH MENISCAL TEARS MOST RECENT 2003 (ARTHROSCOPICALLY). BACK PROBLEMS PREVIOUSLY TREATED WITH ANTIFLA MMATORIES, HEAT, AND TENS - Past Surgical History Past Surgical History: Yes Neuro Surgical History: No Pertinent History Cardiac: No Pertinent History Respiratory: No Pertinent History Gastrointestinal: No Pertinent History Genitourinary: No Pertinent History Musculoskeletal: Orthopedic Surgery Female Surgical History: Section Other Surgical History: 2 KNEE SURGERYS. D&C x 2, 1 uterine adhesion surgery, x 1, L knee arthroscopy times 2, rectal fistula times 2, colonoscopy times 2, egd, heel/right foot - Social History Smoking Status: Never smoker Exposure to second hand smoke: No Drug Use: none Patient Lives Alone: No - Nursing Vital Signs Nursing Vital Signs: Initial Vital Signs Temperature 97.6 F 03/14/21 07:43 Pulse Rate 62 03/14/21 07:43 Blood Pressure 134/73 03/14/21 07:43 O2 Sat by Pulse Oximetry 96 03/14/21 07:43 Pain Scale Pain Intensity 5 - Physical Exam General Appearance: no apparent distress, alert, anxiety Eyes, Ears, Nose, Throat Exam: normal ENT inspection, moist mucous membranes Neck Exam: normal inspection, non-tender, supple, full range of motion Cardiovascular/Respiratory Exam: normal breath sounds, regular rate/rhythm, heart sounds normal, no respiratory distress Gastrointestinal/Abdominal Exam: non-tender Back Exam: normal inspection, normal range of motion, No CVA tenderness, No vertebral tenderness Hips Exam: bilateral: non-tender, normal inspection, normal range of motion, no evidence of injury Legs Exam: right leg: non-tender, left leg: soft tissue tenderness (Left lower leg posterior calf), bilateral leg: normal inspection, normal range of motion, no evidence of injury Knees Exam: bilateral knee: non-tender, normal inspection, normal range of motion, no evidence of injury Ankle Exam: bilateral ankle: non-tender, normal inspection, normal range of motion, no evidence of injury Foot Exam: bilateral foot: non-tender, normal inspection, normal range of motion, no evidence of injury Neuro/Tendon Exam: normal sensation, normal motor functions, normal tendon functions Mental Status Exam: alert, oriented x 3, cooperative Skin Exam: normal color, warm, dry SpO2 Interpretation: normal O2 Delivery: Room Air - Course Nursing assessment & vital signs reviewed: Yes EKG Interpreted by Me: RATE (62), Sinus Rhythm, NORMAL AXIS, NORMAL INTERVALS, NORMAL QRS, NORMAL ST-T, Other (No acute ischemic changes on today's EKG.) Ordered Tests: Active Orders 24 hr Category Date Time Status Yeast Culture Developer STAT Care 03/14/21 07:47 Active EKG-ER Only STAT Care 03/14/21 07:46 Active CHEST 1 VIEW (PORTABLE) Stat Exams 03/14/21 07:47 Completed CBC W DIFF Stat Lab 03/14/21 07:55 Completed CMP Stat Lab 03/14/21 07:55 Completed D-DIMER QUANTITATIVE Stat Lab 03/14/21 07:55 Completed NT PRO BNP Stat Lab 03/14/21 07:55 Completed PROTIME WITH INR Stat Lab 03/14/21 07:55 Completed TROPONIN Q3H Lab 03/14/21 07:55 Completed TROPONIN Q3H Lab 03/14/21 11:00 Ordered TROPONIN Q3H Lab 03/14/21 14:00 Ordered TROPONIN Q3H Lab 03/14/21 17:00 Ordered TROPONIN Q3H Lab 03/14/21 20:00 Ordered Medication Summary Discontinued Medications Generic Name Dose Route Start Last Admin Trade Name Cyn PRN Reason Stop Dose Admin Aspirin 324 mg 03/14/21 07:46 03/14/21 08:10 Aspirin 81 Mg Tab.Chew PO 03/14/21 07:47 324 mg STAT ONE Administration Lab/Rad Data: Laboratory Result Diagrams 03/14/21 07:55 03/14/21 07:55 Laboratory Results 03/14/21 03/14/21 03/14/21 Range/Units 07:55 07:55 07:55 WBC (4.0-10.5) K/mm3 RBC (4.1-5.4) M/mm3 Hgb (12.0-16.0) gm/dl Hct (35-47) % MCV (78-100) fl MCH (26-32) pg MCHC (32-36) g/dl RDW (11.5-14.0) % Plt Count (150-450) K/mm3 MPV (7.5-11.0) fl Gran % (36.0-66.0) % Eos # (Auto) (0-0.5) Absolute Lymphs (auto) (1.0-4.6) Absolute Monos (auto) (0.0-1.3) Lymphocytes % (24.0-44.0) % Monocytes % (0.0-12.0) % Eosinophils % (0.00-5.0) % Basophils % (0.0-0.4) % Absolute Granulocytes (1.4-6.9) Basophils # (0-0.4) PT 11.7 (9.4-12.5) SECONDS INR 0.99 (0.8-3.0) D-Dimer 492 (215-500) ng/mL Sodium 140 (137-145) mmol/L Potassium 4.0 (3.5-5.1) mmol/L Chloride 104 (98-107) mmol/L Carbon Dioxide 27 (22-30) mmol/L Anion Gap 12.5 (5-15) MEQ/L BUN 22 H (7-17) mg/dL Creatinine 0.85 (0.52-1.04) mg/dL Estimated GFR > 60.0 ML/MIN Glucose 110 H (74-106) mg/dL Calcium 9.3 (8.4-10.2) mg/dL Total Bilirubin 0.50 (0.2-1.3) mg/dL AST 25 (14-36) U/L ALT 22 (0-35) U/L Alkaline Phosphatase 93 (38-126) U/L Troponin I < 0.012 (0.000-0.034) ng/mL NT-Pro-B Natriuret Pep 60.7 (0-900) pg/mL Serum Total Protein 7.2 (6.3-8.2) g/dL Albumin 4.5 (3.5-5.0) g/dL 03/14/21 Range/Units 07:55 WBC 5.7 (4.0-10.5) K/mm3 RBC 4.36 (4.1-5.4) M/mm3 Hgb 13.2 (12.0-16.0) gm/dl Hct 41.1 (35-47) % MCV 94.3 (78-100) fl MCH 30.3 (26-32) pg MCHC 32.1 (32-36) g/dl RDW 13.3 (11.5-14.0) % Plt Count 265 (150-450) K/mm3 MPV 9.6 (7.5-11.0) fl Gran % 58.1 (36.0-66.0) % Eos # (Auto) 0.21 (0-0.5) Absolute Lymphs (auto) 1.60 (1.0-4.6) Absolute Monos (auto) 0.54 (0.0-1.3) Lymphocytes % 28.2 (24.0-44.0) % Monocytes % 9.5 (0.0-12.0) % Eosinophils % 3.7 (0.00-5.0) % Basophils % 0.5 (0.0-0.4) % Absolute Granulocytes 3.29 (1.4-6.9) Basophils # 0.03 (0-0.4) PT (9.4-12.5) SECONDS INR (0.8-3.0) D-Dimer (215-500) ng/mL Sodium (137-145) mmol/L Potassium (3.5-5.1) mmol/L Chloride (98-107) mmol/L Carbon Dioxide (22-30) mmol/L Anion Gap (5-15) MEQ/L BUN (7-17) mg/dL Creatinine (0.52-1.04) mg/dL Estimated GFR ML/MIN Glucose (74-106) mg/dL Calcium (8.4-10.2) mg/dL Total Bilirubin (0.2-1.3) mg/dL AST (14-36) U/L ALT (0-35) U/L Alkaline Phosphatase (38-126) U/L Troponin I (0.000-0.034) ng/mL NT-Pro-B Natriuret Pep (0-900) pg/mL Serum Total Protein (6.3-8.2) g/dL Albumin (3.5-5.0) g/dL - Progress Progress: unchanged, re-examined Progress Note: 03/14/21 08:54 Chest x-ray shows no acute cardiopulmonary findings Counseled pt/family regarding: lab results, diagnosis, need for follow-up, rad results - Departure Departure Disposition: Home Clinical Impression: Non-cardiac chest pain, Musculoskeletal pain of left lower extremity Condition: Stable Critical Care Time: No Referrals: CHICHO DEAN [Primary Care Provider] - Follow up/PCP as directed Additional Instructions: Take your medications as prescribed. Follow-up with your primary care physician and batch unloader for further management.
[2021-03-14] MEDS: BABY ASPIRIN 81 MG CHEW PO ONE (08:10)
[2021-03-14 08:11] LABS: Absolute Neutrophil Ct (ANC) 3.29 (1.4-6.9); BASOPHIL % 0.5 % (0.0-0.4); Basophil (Absolute #) 0.03 (0-0.4); Eosinophil % 3.7 % (0.00-5.0); Eosinophil (Absolute #) 0.21 (0-0.5); Hematocrit 41.1 % (35-47); Hemoglobin 13.2 gm/dl (12.0-16.0); Lymphocytes % 28.2 % (24.0-44.0); Mean Cell Volume 94.3 fl (78-100); Mean Corpuscular Hemoglobin 30.3 pg (26-32); Mean Corpuscular Hgb Concent. 32.1 g/dl (32-36); Mean Platelet Volume 9.6 fl (7.5-11.0); Monocyte (Absolute #) 0.54 (0.0-1.3); Monocytes % 9.5 % (0.0-12.0); Neutrophil % 58.1 % (36.0-66.0); Platelet Count 265 K/mm3 (150-450); Red Blood Count 4.36 M/mm3 (4.1-5.4); Red Cell Distribution Width 13.3 % (11.5-14.0); White Blood Count 5.7 K/mm3 (4.0-10.5)
[2021-03-14 08:12] LABS: INR 0.99 (0.8-3.0); PROTIME 11.7 SECONDS (9.4-12.5)
[2021-03-14 08:25] LABS: ALBUMIN 4.5 g/dL (3.5-5.0); ALKALINE PHOSPHATASE 93 U/L (38-126); ANION GAP 12.5 MEQ/L (5-15); BLOOD UREA NITROGEN 22 mg/dL (7-17); CHLORIDE 104 mmol/L (98-107); Calcium 9.3 mg/dL (8.4-10.2); Carbon Dioxide 27 mmol/L (22-30); Creatinine 1 0.85 mg/dL (0.52-1.04); EST GLOMERULAR FILTRATION RATE > 60.0 ML/MIN; Glucose 110 mg/dL (74-106); NT PRO BNP 60.7 pg/mL (0-900); SGOT/AST 25 U/L (14-36); SGPT/ALT 22 U/L (0-35); SODIUM 140 mmol/L (137-145); Total Protein 7.2 g/dL (6.3-8.2)
--- NOTE | 2021-03-14 08:56 | XRAY ---
Indication: Chest pain. Comparison: May 09, 2016. Portable chest again demonstrates normal heart and lungs with incidental tiny calcified granuloma. Bony thorax intact. No new/acute findings.
[2021-03-14 09:29] VITALS: BP 119/70; PULSE 61; O2SAT 96
== END 2021-03-14 09:32 | disposition home or self-care (01) ==
LOC: ED 07:34
DX: M79.662 Pain in left lower leg (principal); R07.89 Other chest pain; E78.5 Hyperlipidemia, unspecified; E03.9 Hypothyroidism, unspecified; I10 Essential (primary) hypertension; M54.50 Low back pain, unspecified
CPT/HCPCS: 36415; 71045; 80053; 83880; 84484; 85025; 85379; 85610; 93005; 93041; 99284; A9270-GY

== ENCOUNTER 2021-08-28 10:31 | Day surgery (SDC) | payer OTHER ==
[~2021-08-28 10:31] MED LIST changes: -DIPRIVAN 200 MG/20 ML IV ONE; -Lactated Ringers 1,000 ML IV ONE; -SUBLIMAZE 100 MCG/2 ML IV ONE; -Versed 2 MG/2 ML Injection IV ONE
[2021-08-28] MEDS ORDERED: Lactated Ringers 1,000 ML IV ONE (10:44)
[2021-08-28] MEDS ORDERED: DIPRIVAN 200 MG/20 ML IV ONE ×2 (12:56→13:10)
[2021-08-28] MEDS ORDERED: Versed 2 MG/2 ML Injection ONE (12:57)
[2021-08-28 14:55] VITALS: BP 134/70; PULSE 66; O2SAT 98
--- NOTE | 2021-08-29 08:11 | OP ---
PROCEDURE DATE/TIME: 08/28/2021 1257 PREOPERATIVE DIAGNOSIS: Screening. POSTOPERATIVE DIAGNOSES: 1) Mild diverticulosis. 2) Mild hemorrhoidal disease. 3) Splenic flexure polyp. PROCEDURE: Colonoscopy to cecum with cold forceps splenic flexure polypectomy. PROCEDURE PERFORMED BY: Aura Delgado M.D. COMPLICATIONS: None. ESTIMATED BLOOD LOSS: Minimal. ANESTHESIA: MAC. SPECIMEN: Splenic flexure polyp. PLAN: Tentative colonoscopy reminder for surveillance in approximately ten years. Increase fiber and water intake. Final interval colonoscopy to be determined after final pathology results. HISTORY: This is a 61-year-old female who presents for screening colonoscopy. Risks, benefits, alternatives, H&P and consent have all been reviewed with her and confirmed. DESCRIPTION OF PROCEDURE: She was then placed in the left lateral decubitus position. A complete time out performed. First a rectal exam was done. The patient has very mildly enlarged internal hemorrhoids. The scope was inserted and gently advanced to the level of the cecum with ease. The cecum was identified. The appendiceal orifice and ileocecal valve were clearly identified. The prep was good. We carefully withdrew the scope taking a circumferential view. The patient had multiple small diverticular pockets throughout the transverse, descending and sigmoid colon. She also had one small 2 mm polyp in the splenic flexure this was taken in entirety with one bite of a cold forceps. The specimen was retrieved and sent for pathology and we did confirm full removal. The scope was then further withdrawn. There were no other findings in the rectum or colon. The mucosa was very healthy. The patient tolerated the procedure well. No immediate complications. Everything was hemostatic. She will be following up with me as an outpatient to discuss the pathology results with a tentative ten year interval.
== END 2021-08-28 14:45 | disposition home or self-care (01) ==
LOC: SDC 10:31
PROVIDERS: ATTEND Surgery
DX: Z12.11 Encounter for screening for malignant neoplasm of colon (principal); K57.30 Diverticulosis of large intestine without perforation or abscess without bleeding; K63.5 Polyp of colon; K64.8 Other hemorrhoids
CPT/HCPCS: 82947; 93005; J2250; J2704

== ENCOUNTER 2023-02-27 07:18 | Day surgery (SDC) | payer OTHER ==
[2023-02-27] MEDS ORDERED: LIDOCAINE HCL 1% 50 MG/5 ML VL PF IJ ONE (07:19)
[2023-02-27] MEDS ORDERED: Depo-Medrol 40 MG/ML IM ONE (07:19)
[2023-02-27] MEDS ORDERED: BUPIVACAINE 0.5% VIAL IJ ONE (07:19)
--- NOTE | 2023-02-27 20:59 | XRAY ---
16 seconds of fluoroscopy was used in surgery for a right shoulder intra-articular and subacromial bursa injections.
--- NOTE | 2023-02-27 20:59 | XRAY ---
Indication: Right shoulder and subacromial bursa injection. Intraoperative fluoroscopy provided for 16 seconds. 2 digital spot image submitted for interpretation demonstrates needle tip projecting over the right glenohumeral joint superiorly. Second needle tip subacromial. Small amount of contrast injected for both needle tip placement. Correlate with intraoperative findings/report.
== END 2023-02-27 18:52 | disposition home or self-care (01) ==
LOC: SDC-PAIN 07:18
PROVIDERS: ATTEND Psychiatry & Neurology Pain Medicine
DX: M19.011 Primary osteoarthritis, right shoulder (principal); M75.51 Bursitis of right shoulder; R73.03 Prediabetes
CPT/HCPCS: 20610; 73030; 77002; 82947; J1030; J2001; Q9966

== ENCOUNTER 2023-09-04 12:19 | Day surgery (SDC) | payer OTHER ==
[2023-09-04] MEDS ORDERED: XYLOCAINE-MPF 1% 5ML SDV IJ ONE (12:20)
[2023-09-04] MEDS ORDERED: Depo-Medrol 40 MG/ML IM ONE (12:20)
[2023-09-04] MEDS ORDERED: BUPIVACAINE 0.5% VIAL IJ ONE (12:20)
--- NOTE | 2023-09-04 19:30 | XRAY ---
Indication: Right shoulder and subacromial bursa injection. Intraoperative fluoroscopy provided for 16 seconds. 2 digital spot images submitted for interpretation demonstrates needle tip projecting over the right glenohumeral joint superiorly. Second needle tip subacromial. Small amount of contrast injected for both needle tip placement. Correlate with intraoperative findings/report.
--- NOTE | 2023-09-05 10:34 | XRAY ---
16 seconds of fluoroscopy was used in surgery for a right intra-articular shoulder and subacromial bursa injection.
== END 2023-09-04 17:33 | disposition home or self-care (01) ==
LOC: SDC-PAIN 12:19
PROVIDERS: ATTEND Psychiatry & Neurology Pain Medicine
DX: M19.011 Primary osteoarthritis, right shoulder (principal)
CPT/HCPCS: 20610; 73030; 77002; J1010; Q9966

== ENCOUNTER 2025-02-01 10:02 | Day surgery (SDC) | payer OTHER ==
[2025-02-01 10:31] VITALS: RESP 18
[2025-02-01] MEDS ORDERED: propofoL IV ONE ×4 (11:48→12:28)
[2025-02-01] MEDS ORDERED: Xylocaine-Mpf 2% 5 Ml Vial ONE (11:48)
[2025-02-01] MEDS ORDERED: Versed 2 MG/2 ML Injection ONE (12:01)
[2025-02-01] MEDS ORDERED: PHENYLEPHRINE HCL ONE (12:17)
[2025-02-01 13:46] VITALS: BP 160/70; PULSE 59; TEMP 97.3; O2SAT 93
--- NOTE | 2025-02-02 12:43 | OP ---
SURGERY DATE/TIME: 02/01/2025 [id number] PREOPERATIVE DIAGNOSES: 1) Dysphagia. 2) Reflux. 3) Change in bowel function. POSTOPERATIVE DIAGNOSES: 1) Reflux esophagitis. 2) Peptic ulcer disease with hemorrhage. 3) Small hiatal hernia. 4) Diverticulosis. 5) Hemorrhoids. PROCEDURE: 1) Esophagogastroduodenoscopy with biopsies. 2) Colonoscopy with biopsies. SURGEON: Aura Delgado MD. ANESTHESIA: MAC. ESTIMATED BLOOD LOSS: Minimal. COMPLICATIONS: None. SPECIMENS: Antral biopsy, distal esophagus biopsy, and random colon biopsies including rectum, sigmoid, descending, and ascending colon. INDICATIONS: This is a patient who presents with multiple symptoms including dysphagia, reflux, and on occasion, her bowel function, here for colonoscopy. She has a family history of appendiceal cancer and a family history of ulcerative colitis in different family members. She understands the procedures, the risks, the benefits, and the alternatives. All her questions have been answered to her satisfaction. She was seen in the preoperative area to confirm this. Her H and P and consent have been completed and she wants to proceed. DESCRIPTION OF PROCEDURE AND FINDINGS: She was then brought back to the endoscopy suite, laid in left lateral decubitus position, and complete time-out performed. Scope was gently inserted into the mouth, oropharynx, down to the esophagus, stomach, duodenum up until the level of the second portion of the duodenum. We then carefully withdrew the scope. The visualized portion of the duodenum was normal. In the antrum, the patient has 2 ulcers in the distal aspect of the antrum that are more significant. These are cratered, approximately 8 to 10 mm in diameter, with clots that do not irrigate free. She then has multiple, scattered, small erosions and ulcerations throughout the remainder of the body of the stomach in the lower aspect. She has blood in the stomach that was noted immediately upon entry. On retroflexed view, she has less inflammation in the upper stomach. She has a few, very small, benign-appearing, gastric polyps consistent with PPI use. She also has a small hiatal hernia. The scope was then unretroflexed. There are no masses of concern in the stomach. I then took cold forceps biopsies in the antrum to rule out H pylori and sent these to Pathology. This site is hemostatic. The scope was then carefully withdrawn into the distal esophagus. She does have reflux esophagitis concerning for possible Sheehan's disease. She also has a small hiatal hernia. Her GE junction is at 39 cm. I took small, cold forceps biopsies along the 1 cm Sheehan's column that was noted and then on the contralateral side as well. There were no other columns or islands noted. The scope was then fully removed from the esophagus. The remainder of the esophagus is very normal with nice, healthy mucosa. There are no strictures or masses of concern. The scope was then fully removed and the patient tolerated the procedure well. She was then repositioned for colonoscopy. First, a rectal exam was done and then the scope was inserted and gently advanced to the level of the cecum. The ileocecal valve and the appendiceal orifice were identified. These were normal. The colon overall looked normal and healthy. A prep overall was satisfactory. The scope was then carefully withdrawn, taking a circumferential view. Overall, we saw only a minimal amount of diverticulosis. She did have diverticulosis at the hepatic flexure with 1 diverticula noted here and sparse diverticula in the remainder of the distal colon. I took biopsies in the ascending, descending, sigmoid, and rectum to rule out microscopic colitis. These were all taken with cold forceps. All sites were reviewed post biopsy. All sites are hemostatic. The rectum looks normal. The scope was able to be fully removed. The patient tolerated the procedure very well. There were no immediate complications. Plan for an EGD in approximately 3 months' time and a colonoscopy in approximately 5 years due to no polyps at this visit, but positive family history of appendiceal cancer. I also discussed her findings with her family, discussed diet and lifestyle changed, discussed avoiding NSAIDs except for baby aspirin, and also discussed her new prescription. She will also be following up with me as an outpatient. She was then returned to PACU in stable condition. The patient will be seeing me in approximately 1 month.
== END 2025-02-01 14:05 | disposition home or self-care (01) ==
LOC: SDC 10:02
PROVIDERS: ATTEND Surgery
DX: K27.4 Chronic or unspecified peptic ulcer, site unspecified, with hemorrhage (principal); R13.19 Other dysphagia; K21.9 Gastro-esophageal reflux disease without esophagitis; R19.4 Change in bowel habit; R73.03 Prediabetes; K21.00 Gastro-esophageal reflux disease with esophagitis, without bleeding; K44.9 Diaphragmatic hernia without obstruction or gangrene; K57.30 Diverticulosis of large intestine without perforation or abscess without bleeding; Z80.8 Family history of malignant neoplasm of other organs or systems; K64.9 Unspecified hemorrhoids